=== PATIENT | female | born 1945 | race Caucasian/White ===

== ENCOUNTER 2020-04-28 09:08 | Outpatient (CLI) | payer MEDICARE, OTHER, SELFPAY ==
--- NOTE | 2020-04-28 09:20 | MM_ITS ---
WS: [id number] BILATERAL DIGITAL SCREENING MAMMOGRAPHY WITH CAD CLINICAL INFORMATION: SCREENING HISTORY: Screening mammogram. No current complaints. COMPARISON: July 20, 2018 TECHNIQUE: Bilateral CC and MLO views. FINDINGS: Scattered fibroglandular densities bilaterally. No suspicious focal mass, asymmetry, calcifications, or architectural distortion. No evidence of malignancy. Lucent centered and punctate calcifications. Increasing slightly spiculated asymmetric density upper outer right breast. Recommend further evaluat ion with spot compression views and ultrasound if persistent. Left breast is unchanged. MM/[place] [id number] IMPRESSION: BI-RADS: 0-Incomplete: Need additional imaging evaluation FOLLOW UP: Need Additional Imaging
== END 2020-04-28 09:09 | disposition home or self-care (01) ==
LOC: RADSHAW 09:17
PROVIDERS: PCP Family Medicine; Visit Provider Family Medicine
DX: Z12.31 Encounter for screening mammogram for malignant neoplasm of breast (principal); N64.89 Other specified disorders of breast
CPT/HCPCS: 77067

== ENCOUNTER 2020-05-25 11:41 | Outpatient (CLI) | payer MEDICARE, OTHER, SELFPAY ==
--- NOTE | 2020-05-25 11:49 | US_ITS ---
WS: [id number] RIGHT DIGITAL MAMMOGRAPHY WITH CAD CLINICAL INFORMATION: RT BREAST DENSITY;INCONCLUSIVE MAMMOGRAM COMPARISON: April 28, 2020 TECHNIQUE: 3 views of the right breast were obtained. FINDINGS: Scattered fibroglandular densities of the right breast. Previously described slightly spiculated dens ity upper outer right breast partially compresses out but persists. Ultrasound is pending. ULTRASOUND BREAST RIGHT TECHNIQUE: Ultrasound right breast focused area of concern. CLINICAL INFORMATION: RT BREAST DENSITY;INCONCLUSIVE MAMMOGRAM COMPARISON: None. FINDINGS: Ultrasound right breast 900-11:00 position. No underlying mass or lesion. Normal underlying breast pa renchyma. No lesions to target for biopsy. US/US breast RT limited* [id number] IMPRESSION: BI-RADS: 2-Benign FOLLOW UP: 1 Year Follow-up Recommend return to annual screening mammography.
== END 2020-05-25 11:42 | disposition home or self-care (01) ==
LOC: RADSHAW 11:44
PROVIDERS: PCP Family Medicine; Visit Provider Family Medicine
DX: R92.2 Inconclusive mammogram (principal)
CPT/HCPCS: 76642; 77065

== ENCOUNTER 2022-07-15 13:00 | Outpatient (CLI) | payer MEDICARE, OTHER, SELFPAY ==
--- NOTE | 2022-07-15 13:13 | XR_ITS ---
WS: [id number] Cervical spine, lateral, AP, odontoid and both obliques, 07/15/2022 Clinical Data: ANESTHESIA OF SKIN/FALL FROM BED/NUMBNESS OF FINGERS Comparison: None. Findings: No compression fractures are seen. There is degenerative disc narrowing at C5-6 and C6-7. A nterior osteophytes are present C3-C7. There is no prevertebral soft tissue swelling. The odontoid is unremarkable. The oblique films show foraminal narrowing at C5-C6, C6-C7 and C7-T1 bilaterally. The soft tissues of the neck and the lung apices are normal. XR/XR cervical spine 4-5V [id number] Impression: 1. Degenerative disc narrowing at C5-C6 and C6-C7. 2. Anterior osteophytes at C3-C7. 3. Foraminal narrowing from C5-C6 through C7-T1 bilaterally.
== END 2022-07-15 13:01 | disposition home or self-care (01) ==
PROVIDERS: PCP Family Medicine; Visit Provider Family Medicine
DX: R20.0 Anesthesia of skin (principal); W19.XXXA Unspecified fall, initial encounter; M50.322 Other cervical disc degeneration at C5-C6 level; M25.78 Osteophyte, vertebrae
CPT/HCPCS: 72050

== ENCOUNTER 2022-07-20 15:00 | Outpatient (CLI) | payer MEDICARE, OTHER, SELFPAY ==
--- NOTE | 2022-07-20 15:23 | XR_ITS ---
WS: [id number] XR forearm LT 2V [id number] REASON FOR EXAM: FALL FINDINGS: Left radius and ulna are intact with no fracture identified. No evidence of proximal or distal dislocation of the radius and ulna. No significant focal soft tissue abnormality. XR/XR forearm LT 2V [id number] IMPRESSION: No acute abnormality.
== END 2022-07-20 15:01 | disposition home or self-care (01) ==
LOC: RAD 15:03
PROVIDERS: PCP Family Medicine; Visit Provider Family Medicine
DX: R20.0 Anesthesia of skin (principal); W06.XXXA Fall from bed, initial encounter
CPT/HCPCS: 73090

== ENCOUNTER 2022-09-14 12:43 | Outpatient (CLI) | payer MEDICARE, OTHER, SELFPAY ==
--- NOTE | 2022-09-14 13:17 | MM_ITS ---
WS: [id number] Bilateral screening 3D tomosynthesis digital mammogram, 09/14/2022 Clinical Data: SCREENING Comparison: 05/25/2020, 04/28/2020, 07/20/2018, 03/23/2017, 03/11/2016, 12/09/2014, 12/04/2013, 07/24/2012, 01/05. Findings: The breast parenchymal pattern shows fibro-glandular tissue. The right breast is normal. The left kimber ast shows a dense 1.3 cm lesion in the upper outer quadrant at the 2:00 position which was not previo usly present. This density has a well-defined border with no interior calcifications. There are vascu lar calcifications anterior to this lesion. The skin adjacent to the left nipple may be slightly thic kened. MM/[place] [id number] Impression: 1. Recommend repeat MLO and ML images and an ML image of the left breast to ev aluate 1.3 cm lesion. 2. Recommend left breast ultrasound. BIRADS: 0-Incomplete: Need additional imaging evaluation FOLLOW UP: See Report The CAD body design checker was used.
--- NOTE | 2022-09-14 13:18 | XR_ITS ---
WS: [id number] DEXA (DUAL ENERGY X-RAY ABSORPTIOMETRY) Bone mineral density was performed using a Cubie machine. HISTORY: ASYMPTOMATIC MENOPAUSAL STATE COMPARISON: None available. Lumbar spine BMD (L1-L3): 1.350 T score: 1.5 Z score: 3.0 Total hip BMD: Left: 0.766 g/cm2. T score: -1.9 Z score: -0.3 Right: 0.788 g/cm2. T score: -1.7 Z score: -0.2 10 year probability of a major osteoporotic fracture is 18.2%. RIGHT curvature lumbar spine. XR/XR DEXA axial skeleton* [id number] IMPRESSION: OSTEOPENIA based upon the WHO classification for females.
== END 2022-09-14 12:44 | disposition home or self-care (01) ==
LOC: RAD 12:44
PROVIDERS: PCP Family Medicine; Visit Provider Family Medicine
DX: Z12.31 Encounter for screening mammogram for malignant neoplasm of breast (principal); Z78.0 Asymptomatic menopausal state; N64.89 Other specified disorders of breast; M85.80 Other specified disorders of bone density and structure, unspecified site
CPT/HCPCS: 77063; 77067; 77080

== ENCOUNTER 2022-10-07 09:22 | Outpatient (CLI) | payer MEDICARE, OTHER, SELFPAY ==
--- NOTE | 2022-10-07 09:30 | MM_ITS ---
WS: [id number] ADDITIONAL VIEWS LEFT MAMMOGRAM with tomosynthesis. LEFT BREAST ULTRASOUND HISTORY: ABNORMAL MAMMO COMPARISON: 09/14/2022, 04/28/2020 and 07/20/2018 LEFT MAMMOGRAM: Spot compression views and true ML with tomosynthesis and sympathetic mammography. Spiculated mass mid LEFT breast at 1-2 o'clock. Hyperdense mass with spiculations and adjacent nodula r extensions. The dominant mass measures 13 x 14 mm. LEFT BREAST ULTRASOUND 2-D and color Doppler imaging submitted. Hypoechoic mass with spiculated angular margins in the LEFT breast at 1:00, 3 cm from the nipple. Mas s measures 1.0 x 1.4 x 0.9 cm. There is mild peripheral increased vascularity. There are a few small hypoechoic extensions from this mass suggesting ductal extension. No axillary adenopathy. There are some benign-appearing lymph nodes in the axilla. MM/[place] [id number] IMPRESSION: BI-RADS: 5-Highly Suggestive of Malignancy FOLLOW UP: Biopsy Recommended Ultrasound-guided biopsy LEFT breast recommended. Notified Chantal Desai MD at 10/07/2022 10:26 AM.
== END 2022-10-07 09:23 | disposition home or self-care (01) ==
LOC: RAD 09:22
PROVIDERS: PCP Family Medicine; Visit Provider Family Medicine
DX: R92.8 Other abnormal and inconclusive findings on diagnostic imaging of breast (principal); N63.21 Unspecified lump in the left breast, upper outer quadrant
CPT/HCPCS: 76642; 77061; G0279

== ENCOUNTER 2022-11-17 13:06 | Outpatient (CLI) | payer MEDICARE, OTHER, SELFPAY ==
--- NOTE | 2022-11-17 13:16 | US_ITS ---
WS: [id number] ULTRASOUND-GUIDED LEFT BREAST BIOPSY HISTORY: Abnormal mammogram. Suspicious for cancer. COMPARISON: 10/07/2022, 09/14/2022 Procedure, risks and complications are explained to the patient. Medications are reviewed. Consent is obtained. The mass in the LEFT breast is localized with ultrasound. Mass localizes to 1:00, 3 cm from the nippl e. Skin is cleansed with ChloraPrep and anesthetized with 1% buffered lidocaine. Small dermatome is m reginaldo. Under sterile conditions mass is biopsied with a 14-gauge Achieve needle. Multiple core biopsies are performed. Material placed in formalin and sent to pathology for review. No complications encoun tered. Breast tissue marker (Bard ultrasound enhanced ribbon): Single. Patient left the radiology suite with no complications. Patient is instructed to return to [facility] or [facility] with any concerns. US/[place] [id number] IMPRESSION: 1. Uncomplicated core needle biopsy LEFT breast mass at 1:00, 3 cm from the ni pple. PATHOLOGY: Invasive ductal carcinoma, well to moderately differentiated. Breast profile is pending. RECOMMENDATION: Follow-up with oncology and surgery.
[2022-11-22 06:17] LABS: Breast Profile ER,PR,HER2,Ki-6 See Report
== END 2022-11-17 13:07 | disposition home or self-care (01) ==
LOC: RAD 13:09
PROVIDERS: PCP Family Medicine; Visit Provider Family Medicine
DX: R92.8 Other abnormal and inconclusive findings on diagnostic imaging of breast (principal); C50.412 Malignant neoplasm of upper-outer quadrant of left female breast
CPT/HCPCS: 19083; 88305; 88361; 88374

== ENCOUNTER 2024-04-05 10:23 | Outpatient (CLI) | payer MEDICARE, OTHER, SELFPAY ==
--- NOTE | 2024-04-05 10:55 | XRR_ITS ---
PROCEDURE INFORMATION: Exam: XR Left Wrist Exam date and time: 04/05/2024 11:07 AM Age: 78 years old Clinical indication: Pain; Wrist; Left; Additional info: Pain in left wrist TECHNIQUE: Imaging protocol: Radiologic exam of the left wrist. Views: 3 or more views. COMPARISON: CR XR forearm LT 2V [id number] 07/20/2022 3:23 PM FINDINGS: Bones/joints: Slightly increased density of the lunate suggesting avascular necrosis. Corticated bone density at adjacent to the ulnar styloid probably represents an old avulsion. Degenerative changes at the 1st carpometacarpal joint and at the articulation of the trapezium and trapezoid with the navicular. Soft tissues: Normal. XR/XR wrist LT min 3V* [id number] IMPRESSION: 1. Degenerative changes. 2. Abnormal lunate.
== END 2024-04-05 10:24 | disposition home or self-care (01) ==
LOC: LAB 10:25
PROVIDERS: PCP Family Medicine; Visit Provider Obstetrics & Gynecology
DX: M25.532 Pain in left wrist (principal)
CPT/HCPCS: 73110

== ENCOUNTER → 2024-05-22 10:37 | Outpatient (BNVA) | payer MEDICARE, SELFPAY | PROVIDERS: PCP Family Medicine; Visit Provider Specialist | DX: M19.042 Primary osteoarthritis, left hand | CPT/HCPCS: 73110; 99204 ==

== ENCOUNTER 2024-06-27 12:47 | Outpatient (CLI) | payer MEDICARE, SELFPAY ==
--- NOTE | 2024-06-27 13:00 | MR_ITS ---
WS: [email or web address] EXAMINATION: MR wrist LT wo con* [id number] ORDER DATE: 06/27/2024 12:54 PM COMPARISON: None. HISTORY: left wrist pain TECHNIQUE: Axial T1, axial T2 fat sat, coronal T1, coronal proton density fat sat, coronal STIR, angel nal 3D, and sagittal T1 performed. FINDINGS: Osteopenia. Advanced degenerative narrowing at the radiocarpal articulation. Diffuse sclerosis involv ing the lunate also seen on the recent radiographs. Slight ulna minus variance with chronic well-maryann icated fracture of the styloid tip. 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 Cystic degenerat jessenia change in the scaphoid. Diffuse replacement of the normal fatty bone marrow signal involving the lunate compatible with avasc ular necrosis. Ganglion cyst along the lateral aspect of the wrist at the ulnar styloid measuring 10 x 6 mm. This is interposed between the TFCC and flexor carpi ulnaris. Fluid within the DRUJ. Chronic appearing tear of the TFCC. Cystic degenerative changes involving the proximal and distal carpal row. Degenerative arthritis at t he DRUJ. Small amount of tenosynovitis extensor carpi ulnaris. Tenosynovitis in the carpal tunnel ext ending along the flexor digitorum profundus. Tenosynovitis extending along the flexor pollicis longu s. Small amount of tenosynovitis along the extensor retinaculum and the extensor digitorum and indice s tendons. MR/MR wrist LT wo con* [id number] IMPRESSION: 1. 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 This corresponds with sclerosis seen on the recent radiographs. 2. Slight ulna minus variance with chronic tiny ulnar styloid fracture. 3. Chronic tear of the TFCC with associated adjacent ganglion cyst measuring 1 0 x 6 mm. 4. Advanced degenerative narrowing at the radiocarpal articulation. 5. Cystic degenerative changes in the proximal and distal carpal row. Degenera tive arthritis worse involving the first CMC and STT. 6. Osteopenia. 7. Tenosynovitis in multiple regions described above.
== END 2024-06-27 12:48 | disposition home or self-care (01) ==
LOC: RAD 12:52
PROVIDERS: PCP Family Medicine; Visit Provider Specialist
DX: M19.032 Primary osteoarthritis, left wrist (principal); M85.832 Other specified disorders of bone density and structure, left forearm; M18.12 Unilateral primary osteoarthritis of first carpometacarpal joint, left hand; M11.232 Other chondrocalcinosis, left wrist; M24.132 Other articular cartilage disorders, left wrist; M67.432 Ganglion, left wrist; M25.832 Other specified joint disorders, left wrist; M65.132 Other infective (teno)synovitis, left wrist
CPT/HCPCS: 73221